=== PATIENT | male | born 1960 | race Caucasian/White ===

== ENCOUNTER 2022-10-26 22:42 | Emergency (ER) | payer BC, SELFPAY ==
[2022-10-26 22:54] VITALS: BP 139/86; PULSE 106; RESP 16; TEMP 36.6; O2SAT 98; BMI 32.8
--- NOTE | 2022-10-26 23:42 | CRLHL7_ITS ---
For Patients: As a result of the Century Cures Act, medical imaging exams and procedure reports are released immediately into your electronic medical record. You may view this report before your referring provider. If you have questions, please contact your health care provider. INDICATION: . TECHNIQUE: CT abdomen and pelvis without contrast. Permanently recorded images are archived. COMPARISON: None. FINDINGS: Lower chest: Unremarkable. Liver: Normal in size and attenuation. No suspicious masses. Gallbladder and bile ducts: No stones or inflammation. No biliary dilatation. Pancreas: Unremarkable. No mass or inflammation. Spleen: Normal in size. No masses. Adrenal glands: Normal in size. No nodules. Kidneys, Ureters, and Bladder: There are 2 small stones in the right distal ureter, a 3 mm stone at the ureterovesicular junction and a 2 mm stone just proximal to the stone. There is associated mild proximal hydroureteronephrosis with asymmetric perinephric fat stranding. Unremarkable left kidney and ureter. Normal bladder. GI tract: Scattered diverticulosis. Normal in caliber. No sign of inflammation. The appendix is not clearly visualized; however, there are no inflammatory changes in the right lower quadrant. Vasculature: Normal caliber abdominal aorta with moderate atherosclerotic calcification. Lymph nodes: No lymphadenopathy. Peritoneum/Abdominal Wall: Unremarkable. No free air or significant free fluid. Pelvis: Prostatomegaly. Bones: Unremarkable for age. IMPRESSION: Two small stones in the right distal ureter, as described above, with associated mild proximal hydroureteronephrosis. Please note that all CT scans at this facility use dose modulation, iterative reconstruction, and/or weight-based dosing when appropriate to reduce radiation dose to as low as reasonably achievable. Dictated by Prasanth Noe MD @ 10/27/2022 12:31:44 AM (Electronically Signed)
--- NOTE | 2022-10-26 23:43 | ED_ITS ---
HPI - Abdominal Pain General Chief Complaint: Abdominal Pain Stated Complaint: right side abdominal pain Time Seen by Provider: 10/26/22 23:34 History of Present Illness HPI narrative: This 62-year-old male comes in with right lower quadrant abdominal pain that began this morning about 12 hours ago. He does report some nausea but did not have vomiting. He does not report any symptoms of dysuria. 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 He does not report any fevers or diarrhea. He states that he does have a history of kidney stones. Related Data Home Medications Medication Instructions Recorded Confirmed glipizide 5 mg tablet 2.5 mg PO DAILY 10/26/22 10/26/22 metformin 500 mg tablet 500 mg PO BID 10/26/22 10/26/22 rosuvastatin 20 mg tablet (Crestor) 20 mg PO DAILY 10/26/22 10/26/22 Allergies Allergy/AdvReac Type Severity Reaction Status Date / Time amoxicillin Allergy Intermediate Vomiting Verified 10/26/22 23:06 Penicillins Allergy Intermediate Vomiting Verified 10/26/22 23:06 Review of Systems Status of ROS Reports: 10 or more systems reviewed and unremarkable except as noted in History and below Narrative Constitutional: No fevers, no weight gain or loss. Eyes: No discharge. No vision changes. HENT: No congestion, no sore throat, no ear pain. Cardiovascular: No chest pain, no palpitations. Respiratory: No shortness of breath, no wheezes, no cough. Gastrointestinal: Right lower quadrant abdominal pain. Genitourinary: No dysuria, no hematuria. Musculoskeletal: Normal range of motion. Skin: No rashes, no pruritis. Neurological: No dizziness, weakness, sensory change, speech change. Endo/Heme/Allergies: No bruising or bleeding. No polydipsia. Pysch: no suicidality, no anxiety, no insomnia. All other systems reviewed and are negative. Exam Narrative: Exam Narrative: Constitutional: Well-developed, well-nourished, no acute distress. HEENT: Normocephalic, atraumatic. Neck: Normal range of motion. Nontender. Supple. Heart: Regular. No murmurs. Normal rate. Intact distal pulses. Lungs: Clear to auscultation. No chest discomfort. No wheezes, rhonchi, or rales. Abdomen: Normal bowel sounds. Tenderness in the right lower quadrant. I am able to palpate rather deeply without worsening pain. No rebound tenderness. Genitalia: Deferred. Back: No midline tenderness. Normal range of motion. Extremities: Normal range of motion. No injury. Skin: Intact. No rash. Warm. No erythema or pallor. Neurologic: No altered sensation. No weakness. Alert and oriented. Psychiatric: No suicidality. No anxiety or depression. No insomnia. Nursing notes and vitals signs are reviewed. Const: Vital Signs, click to edit/add: Vital Signs - 24 hr 10/26/22 22:54 Temperature 97.9 F Pulse Rate [Pulse Oximeter] 106 H Respiratory Rate 16 [facility] 139[facility]86 Pulse Oximetry 98 Oxygen Delivery Me thod Room Air Course Vital Signs Vital signs: Initial Vital Signs Temperature 97.9 F 10/26/22 22:54 Temperature Source Temporal Artery Scan 10/26/22 22:54 Pulse Rate 106 H 10/26/22 22:54 Pulse Rhythm Regular 10/26/22 22:54 Pulse Strength 3+ Normal 10/26/22 22:54 Respiratory Rate 16 10/26/22 22:54 Blood Pressure 139/86 10/26/22 22:54 Blood Pressure Mean 103 10/26/22 22:54 Blood Pressure Position Sitting 10/26/22 22:54 Pulse Oximetry 98 10/26/22 22:54 Oxygen Delivery Method Room Air 10/26/22 22:54 Vital Signs Temperature 97.9 F 10/26/22 22:54 Pulse Rate 106 H 10/26/22 22:54 Respiratory Rate 16 10/26/22 22:54 Blood Pressure 139/86 10/26/22 22:54 Pulse Oximetry 98 10/26/22 22:54 Oxygen Delivery Method Room Air 10/26/22 22:54 Temperature 97.9 F 10/26/22 22:54 Pulse Rate 106 H 10/26/22 22:54 Respiratory Rate 16 10/26/22 22:54 Blood Pressure 139/86 10/26/22 22:54 Pulse Oximetry 98 10/26/22 22:54 Oxygen Delivery Method Room Air 10/26/22 22:54 MDM - Abdominal Pain MDM Narrative Medical decision making narrative: This patient comes in with right lower quadrant abdominal pain which does pose some suspicion for a kidney stone. He has had his appendix removed. He does not have any other complaints except some nausea transient LEEP. He does arrive with normal vital signs but his pulse was increased initially on arrival. A CT scan of the abdomen and pelvis is ordered along with urinalysis. Results for these tests are pending at the end of my shift. The overnight physician will look after results and proceed accordingly. Discharge Plan Discharge Clinical Impression: Abdominal pain Prescriptions: No Action metformin 500 mg tablet 500 mg PO BID glipizide 5 mg tablet 2.5 mg PO DAILY rosuvastatin [Crestor] 20 mg tablet 20 mg PO DAILY
[2022-10-26 23:57] LABS: Appearance Urine Clear (Clear); Bilirubin Urine Negative (Negative); Blood Urine 1+ (Negative); Color Urine Yellow (Yellow); Glucose Urine Negative (Negative); Ketones Urine 2+ (Negative); Leukocyte Esterase Urine Negative (Negative); Nitrite Urine Negative (Negative); Protein Urine Negative (Negative); Specific Gravity Urine >= 1.030 (1.000-1.030)
[2022-10-27 00:09] LABS: Bacteria Urine Few; Squamous Epithelial Cell Urine Few (None-Few); WBC Urine 0-2 (0-5)
== END 2022-10-27 01:04 | disposition home or self-care (01) ==
PROVIDERS: Emergency Provider Emergency Medicine Emergency Medical Services
DX: N13.2 Hydronephrosis with renal and ureteral calculous obstruction (principal)
CPT/HCPCS: 74176; 81001; 87086; 99283; 99284